=== PATIENT | female | born 1935 | race Caucasian/White ===

== ENCOUNTER → 2020-09-10 10:43 | Outpatient (CLI) | payer MEDICARE, SELFPAY ==
--- NOTE | 2020-09-10 10:48 | XR_ITS ---
PROCEDURE: XR HIP RT 2-3V W/PELVIS CLINICAL INDICATION: right hip pain COMPARISON: CR PELAP PELVIS AP ONLY from 12/08/2013 FINDINGS: No fracture or dislocation. No lytic or blastic change. There are minimal osteoarthritic changes of the right hip and the SI joints. Multiple pelvic phleboliths are noted in there are mild degenerative changes in the lower lumbar spine. IMPRESSION: Minimal osteoarthritic change of the right hip and SI joints Dictated by: Hamlet Christensen MD 09/10/2020 12:33 Hamlet Christensen MD in [place] 09/10/2020 12:33
--- NOTE | 2020-09-10 10:48 | XR_ITS ---
PROCEDURE: XR KNEE RT 4V CLINICAL INDICATION: right knee pain; weightbearing COMPARISON: CR [id number] KNEE-4 OR 5 VIEWS-RT from 06/25/2014 CR [id number] KNEE-4 OR 5 VIEWS-RT from 08/12/2016 CR [id number] KNEE-4 OR 5 VIEWS-LT from 02/11/2017 FINDINGS: No fracture or dislocation. No lytic or blastic change. There is normal mineralization. There are moderate osteoarthritic changes involving all 3 compartments . Prominent osteophytes are present at the intercondylar region of the distal femur. Other findings:None. IMPRESSION: Osteoarthritis which has slightly progressed compared to the previous exam Dictated by: Hamlet Christensen MD 09/10/2020 12:35 Hamlet Christensen MD in [place] 09/10/2020 12:35
== END ==
PROVIDERS: PCP Family Medicine; Visit Provider Orthopaedic Surgery
DX: M25.561 Pain in right knee (principal); M25.551 Pain in right hip
CPT/HCPCS: 73502; 73564